=== PATIENT | female | born 1975 | race Caucasian/White ===

== ENCOUNTER → 2020-06-21 16:23 | Outpatient (CLI) | payer OTHER, SELFPAY ==
--- NOTE | 2020-06-21 16:38 | DI.MG.S_ITS ---
Patient Name: MARY KAY SALGADO date: 1975 Sex: F Attending Physician: Brady Indications: Date: 06/21/2020 16:31 At the request of: MAGI DE LA CRUZ Procedure: MM screening mammo implant BI BILATERAL DIGITAL SCREENING MAMMOGRAM 3D/2D WITH CAD WITH AUGMENTATION: 06/21/2020 CLINICAL: Routine screening. Family history of breast cancer. Comparison is made to exams dated: 02/19/2018 mammogram, 11/29/2016 mammogram - [facility], and 08/23/2014 mammogram - [facility]. There are scattered fibroglandular elements in both breasts. Current study was also evaluated with a Computer Aided Detection (CAD) system. There is an oval low density asymmetry with an indistinct and circumscribed margin in the right breast middle depth lateral region seen on the craniocaudal view only. No other significant masses, calcifications, or other findings are seen in either breast. IMPRESSION: INCOMPLETE: NEEDS ADDITIONAL IMAGING EVALUATION The oval low density asymmetry in the right breast is indeterminate. Mediolateral and spot compression views as well as additional views with possible ultrasound are recommended. This exam was interpreted at Station ID: [id number]. NOTE: For mammograms, a report in lay terms will be sent to the patient. Approximately 15% of breast malignancies will not be visualized mammographically. In the management of a palpable breast mass, a negative mammogram must not discourage biopsy of a clinically suspicious lesion. Electronically Signed By: Nicko doe/cortez:06/21/2020 16:54:42 Continued Report - Page 2 of 2 Patient Name: MARY KAY SALGADO date: 1975 Sex: F Attending Physician: Brady Indications: Date: 06/21/2020 16:31 At the request of: MAGI DE LA CRUZ Procedure: MM screening mammo implant BI letter sent: Additional Imaging Needed ACR BI-RADS Category 0: Incomplete [id number]
== END ==
PROVIDERS: PCP Family Medicine; Referring Provider Family Medicine; Visit Provider Family Medicine
DX: Z12.31 Encounter for screening mammogram for malignant neoplasm of breast (principal); Z80.3 Family history of malignant neoplasm of breast
CPT/HCPCS: 77063; 77067

== ENCOUNTER → 2020-07-19 16:44 | Outpatient (CLI) | payer OTHER, SELFPAY ==
[2020-07-19 17:52] LABS: Add Manual Diff / Slide Review NO; Basophils Absolute Auto 100 /uL (0-100); Basophils Percent Auto 0.7 % (0-2); Eosinophils Absolute Auto 200 /uL (0-450); Hematocrit 39.6 % (36-46); Hemoglobin 13.4 g/dL (12.0-16.0); Lymphocytes Absolute Auto 1600 /uL (1100-4500); Lymphocytes Percent Auto 23.4 % (25-40); Mean Corpuscular HGB Conc 33.8 % (30-36); Mean Corpuscular Hemoglobin 32.7 PG (26-34); Monocytes Absolute Auto 300 /uL (0-900); Monocytes Percent Auto 4.8 % (3-14); Neutrophils Absolute Auto 4800 /uL (1500-7000); Neutrophils Percent Auto 68.1 % (50-75); Platelet Count 280 X10^3/uL (150-400); Red Blood Cell Count 4.08 X10^6/uL (4.0-5.2); Red Cell Distribution Width 13.1 % (11.6-14.8)
[2020-07-19 17:59] LABS: Hemoglobin A1C% w Est Avg Glu 5.5 % (4.0-6.0)
[2020-07-19 18:21] LABS: Alanine Aminotransferase 13 IU/L (<35); Albumin 3.9 g/dL (3.5-5.0); Albumin Globulin Ratio 1.3 (1.0-2.8); Alkaline Phosphatase 89 U/L (38-126); Aspartate Aminotransferase 21 IU/L (14-36); BUN Creatinine Ratio 12.9 (6-22); Bilirubin Total 0.3 mg/dL (0.2-1.3); Blood Urea Nitrogen 8 mg/dL (7-17); Calcium 9.3 mg/dL (8.4-10.2); Carbon Dioxide 32 mmol/L (22-32); Chloride 103 mmol/L (98-107); Cholesterol 207 mg/dL (140-199); Estimated Glomerular Filt Rate > 60.0 mL/min (>60); Globulin 3.1 g/dL (1.7-4.1); Glucose 91 mg/dL (70-100); HDL Cholesterol 65 mg/dL (40-60); HEMOLYSIS < 15 (0-50); LDL Cholesterol Calculated 123 mg/dL (<100); Potassium 4.6 mmol/L (3.4-5.1); Sodium 139 mmol/L (137-145); Triglycerides 95 mg/dL (35-150)
[2020-07-19 18:24] LABS: Creatinine Urine Random 81.3 mg/dL
[2020-07-19 18:36] LABS: Vitamin D 25 Hydroxy (D3) 24.4 ng/mL (30.0-100.0)
[2020-07-19 18:39] LABS: Microalbumin Urine Random < 0.6 mg/dL (0-1.6)
[2020-07-19 18:50] LABS: TSH w/ Reflex to FT4 1.43 uIU/mL (0.47-4.68)
[2020-07-19 18:51] LABS: Estradiol, Total 46.8 pg/mL
[2020-07-19 19:09] LABS: Vitamin B12 324 pg/mL (239-931)
[2020-07-20 16:48] LABS: HIV 1 & 2 Ab/Ag 4th Gen Combo NEGATIVE (NEGATIVE); Hep C Virus Ab w/Reflex Quant NEGATIVE s/c (NEGATIVE)
[2020-07-21 05:19] LABS: RPR Screen Non Reactive (Non Reactive)
[2020-07-23 19:36] LABS: Testosterone Free 0.62 ng/dL (0.10-0.85); Testosterone Total 32.8 ng/dL (.)
== END ==
PROVIDERS: PCP Family Medicine; Referring Provider Family Medicine; Visit Provider Family Medicine
DX: Z13.0 Encounter for screening for diseases of the blood and blood-forming organs and certain disorders involving the immune mechanism (principal); Z13.1 Encounter for screening for diabetes mellitus; Z13.21 Encounter for screening for nutritional disorder; Z13.220 Encounter for screening for lipoid disorders
CPT/HCPCS: 36415; 80053; 80061; 82043; 82306; 82570; 82607; 82670; 83036; 84402; 84403; 84443; 85025; 86592; 86803; 87389

== ENCOUNTER → 2021-11-30 13:04 | Outpatient (CLI) | payer OTHER, SELFPAY ==
[2021-11-30 13:40] LABS: Add Manual Diff / Slide Review NO; Basophils Absolute Auto 0 /uL (0-100); Basophils Percent Auto 0.6 % (0-2); Eosinophils Absolute Auto 100 /uL (0-450); Eosinophils Percent Auto 2.2 % (2-4); Hemoglobin 13.5 g/dL (12.0-16.0); Lymphocytes Absolute Auto 1600 /uL (1100-4500); Lymphocytes Percent Auto 32.5 % (25-40); Mean Corpuscular HGB Conc 33.7 % (30-36); Mean Corpuscular Hemoglobin 31.7 PG (26-34); Mean Corpuscular Volume 94.2 fL (80-100); Monocytes Absolute Auto 200 /uL (0-900); Monocytes Percent Auto 4.4 % (3-14); Neutrophils Absolute Auto 3000 /uL (1500-7000); Neutrophils Percent Auto 60.3 % (50-75); Platelet Count 266 X10^3/uL (150-400); Red Blood Cell Count 4.25 X10^6/uL (4.0-5.2); Red Cell Distribution Width 13.3 % (11.6-14.8)
[2021-11-30 14:55] LABS: Alanine Aminotransferase 15 IU/L (<35); Albumin 4.4 g/dL (3.5-5.0); Albumin Globulin Ratio 1.4 (1.0-2.8); Alkaline Phosphatase 73 U/L (38-126); Aspartate Aminotransferase 21 IU/L (14-36); BUN Creatinine Ratio 14.5 (6-22); Bilirubin Total 0.4 mg/dL (0.2-1.3); Blood Urea Nitrogen 9 mg/dL (7-17); Calcium 9.8 mg/dL (8.4-10.2); Carbon Dioxide 32 mmol/L (22-32); Chloride 104 mmol/L (98-107); Cholesterol 230 mg/dL (140-199); Estimated Glomerular Filt Rate > 60.0 mL/min (>60); Globulin 3.2 g/dL (1.7-4.1); Glucose 108 mg/dL (70-100); HDL Cholesterol 68 mg/dL (40-60); HEMOLYSIS < 15 (0-50); LDL Cholesterol Calculated 142 mg/dL (<100); Potassium 4.5 mmol/L (3.4-5.1); Sodium 141 mmol/L (137-145); Total Protein 7.6 g/dL (6.3-8.2); Triglycerides 101 mg/dL (35-150)
[2021-11-30 15:00] LABS: TSH w/ Reflex to FT4 1.93 uIU/mL (0.47-4.68)
[2021-11-30 15:08] LABS: Hepatitis B Surface Antigen NEGATIVE s/c (NEGATIVE)
[2021-11-30 15:20] LABS: Urine N gonorrhoeae NOT DETECTED
[2021-11-30 15:21] LABS: Urine Chlamydia NOT DETECTED
[2021-11-30 15:24] LABS: Vitamin D 25 Hydroxy (D3) 32.4 ng/mL (30.0-100.0)
[2021-11-30 15:27] LABS: Hep C Virus Ab w/Reflex Quant NEGATIVE s/c (NEGATIVE)
[2021-11-30 15:28] LABS: HIV 1 & 2 Ab/Ag 4th Gen Combo NEGATIVE (NEGATIVE)
[2021-11-30 16:28] LABS: Estradiol, Total 16.9 pg/mL
[2021-12-06 06:12] LABS: Percent Free Testosterone 1.25 % (0.50-2.80); Testosterone Free 0.31 ng/dL (0.10-0.85)
== END ==
PROVIDERS: PCP Family Medicine; Referring Provider Family Medicine; Visit Provider Family Medicine
DX: I10 Essential (primary) hypertension (principal); N95.1 Menopausal and female climacteric states; Z11.3 Encounter for screening for infections with a predominantly sexual mode of transmission; Z11.8 Encounter for screening for other infectious and parasitic diseases; E78.5 Hyperlipidemia, unspecified; E55.9 Vitamin D deficiency, unspecified
CPT/HCPCS: 36415; 80053; 80061; 82306; 82670; 84402; 84403; 84443; 85025; 86803; 87340; 87389; 87491; 87591

== ENCOUNTER → 2022-01-24 11:10 | Outpatient (CLI) | payer OTHER, SELFPAY | PROVIDERS: PCP Family Medicine; Referring Provider Family Medicine; Visit Provider Family Medicine | DX: R29.890 Loss of height (principal); Z90.711 Acquired absence of uterus with remaining cervical stump | CPT/HCPCS: 77080 ==

== ENCOUNTER → 2023-02-11 07:55 | Outpatient (CLI) | payer OTHER, SELFPAY ==
[2023-02-11 10:04] LABS: Add Manual Diff / Slide Review NO; Basophils Absolute Auto 0 /uL (0-100); Basophils Percent Auto 0.9 % (0-2); Eosinophils Absolute Auto 200 /uL (0-450); Eosinophils Percent Auto 3.7 % (2-4); Hemoglobin 12.4 g/dL (12.0-16.0); Lymphocytes Absolute Auto 1600 /uL (1100-4500); Lymphocytes Percent Auto 30.2 % (25-40); Mean Corpuscular HGB Conc 33.5 % (30-36); Mean Corpuscular Hemoglobin 32.1 PG (26-34); Mean Corpuscular Volume 95.9 fL (80-100); Monocytes Absolute Auto 500 /uL (0-900); Monocytes Percent Auto 8.4 % (3-14); Neutrophils Absolute Auto 3100 /uL (1500-7000); Neutrophils Percent Auto 56.8 % (50-75); Platelet Count 283 X10^3/uL (150-400); Red Blood Cell Count 3.86 X10^6/uL (4.0-5.2); Red Cell Distribution Width 12.9 % (11.6-14.8); White Blood Cell Count 5.4 X10^3/uL (4.5-11.0)
[2023-02-11 10:35] LABS: Alanine Aminotransferase 19 IU/L (<35); Albumin 4.2 g/dL (3.5-5.0); Albumin Globulin Ratio 1.3 (1.0-2.8); Alkaline Phosphatase 90 U/L (38-126); Aspartate Aminotransferase 21 IU/L (14-36); BUN Creatinine Ratio 20.8 (6-22); Bilirubin Total 0.3 mg/dL (0.2-1.3); Blood Urea Nitrogen 20 mg/dL (7-17); Carbon Dioxide 32 mmol/L (22-32); Chloride 96 mmol/L (98-107); Cholesterol 228 mg/dL (140-199); Estimated Glomerular Filt Rate > 60 mL/min (>60); Globulin 3.3 g/dL (1.7-4.1); Glucose 96 mg/dL (70-100); HDL Cholesterol 73 mg/dL (40-60); HEMOLYSIS < 15 (0-50); LDL Cholesterol Calculated 135 mg/dL (<100); Potassium 4.6 mmol/L (3.4-5.1); Sodium 136 mmol/L (137-145); Total Protein 7.5 g/dL (6.3-8.2); Triglycerides 100 mg/dL (35-150)
--- NOTE | 2023-02-12 12:49 | DI.NM.S_ITS ---
DATE OF SERVICE: PROCEDURE: Exercise stress test. INDICATIONS: Chest pain with underlying hypertension. CARDIAC STRESS: The patient underwent exercise stress test under the supervision of an attending staff. The patient walked on [place] protocol for 9 minutes and achieved 10.1 METS of workload, 89% of target heart rate, SHARI -12%. Resting blood pressure 122/82 mmHg. Peak blood pressure 170/102 mmHg. Maximum heart rate achieved of 153 beats per minute. Baseline rhythm was sinus. During stress, no convincing ischemic changes seen. No significant arrhythmias seen. No ischemic symptoms. The patient felt fatigue and mild shortness of breath during exercise. CONCLUSION: Exercise stress test is negative for inducible ischemia. Fair exercise tolerance. Functional aerobic impairment -12%. Resting blood pressure 122/82 mmHg and peak blood pressure 170/102 mmHg. No significant arrhythmias. No anginal symptoms. Overall, low-risk exercise stress test. Felicitas Camejo - KAILYN/nino/titi doc#: [id number]/job#: [id number] dd: 02/11/2023 16:36:00 dt: 02/12/2023 01:11:00 DICTATING /COPIES TO: Jostin Enriquez MD COPIES MNE: DELMER;
== END ==
PROVIDERS: PCP Family Medicine; Referring Provider Family Medicine; Visit Provider Family Medicine
DX: R07.9 Chest pain, unspecified (principal); I10 Essential (primary) hypertension
CPT/HCPCS: 36415; 80053; 80061; 85025; 93017

== ENCOUNTER → 2023-06-03 14:32 | Outpatient (CLI) | payer OTHER, SELFPAY ==
[2023-06-03 16:02] LABS: BUN Creatinine Ratio 27.8 (6-22); Blood Urea Nitrogen 22 mg/dL (7-17); Carbon Dioxide 27 mmol/L (22-32); Chloride 104 mmol/L (98-107); Estimated Glomerular Filt Rate > 60 mL/min (>60); Glucose 93 mg/dL (70-100); HEMOLYSIS < 15 (0-50); Potassium 4.1 mmol/L (3.4-5.1); Sodium 137 mmol/L (137-145)
== END ==
PROVIDERS: PCP Family Medicine; Referring Provider Physician Assistant; Visit Provider Physician Assistant
DX: I10 Essential (primary) hypertension (principal)
CPT/HCPCS: 36415; 80048

== ENCOUNTER → 2023-11-26 16:03 | Outpatient (CLI) | payer OTHER, SELFPAY ==
[2023-11-26 17:50] LABS: Add Manual Diff / Slide Review NO; Basophils Absolute Auto 0 /uL (0-100); Basophils Percent Auto 0.5 % (0-2); Eosinophils Absolute Auto 100 /uL (0-450); Eosinophils Percent Auto 1.5 % (2-4); Hematocrit 37.9 % (36-46); Hemoglobin 12.7 g/dL (12.0-16.0); Lymphocytes Absolute Auto 2300 /uL (1100-4500); Lymphocytes Percent Auto 25.4 % (25-40); Mean Corpuscular HGB Conc 33.5 % (30-36); Mean Corpuscular Hemoglobin 31.6 PG (26-34); Mean Corpuscular Volume 94.4 fL (80-100); Monocytes Absolute Auto 700 /uL (0-900); Monocytes Percent Auto 7.4 % (3-14); Neutrophils Absolute Auto 5900 /uL (1500-7000); Neutrophils Percent Auto 65.2 % (50-75); Platelet Count 268 X10^3/uL (150-400); Red Blood Cell Count 4.01 X10^6/uL (4.0-5.2); Red Cell Distribution Width 13.1 % (11.6-14.8)
[2023-11-26 18:07] LABS: Hemoglobin A1C% w Est Avg Glu 5.4 % (4.0-6.0)
[2023-11-26 18:31] LABS: Alanine Aminotransferase 14 IU/L (<35); Albumin 4.4 g/dL (3.5-5.0); Albumin Globulin Ratio 1.2 (1.0-2.8); Alkaline Phosphatase 79 U/L (38-126); Aspartate Aminotransferase 26 IU/L (14-36); BUN Creatinine Ratio 17.3 (6-22); Bilirubin Total 0.4 mg/dL (0.2-1.3); Blood Urea Nitrogen 17 mg/dL (7-17); Calcium 9.4 mg/dL (8.4-10.2); Carbon Dioxide 28 mmol/L (22-32); Chloride 100 mmol/L (98-107); Estimated Glomerular Filt Rate > 60 mL/min (>60); Globulin 3.6 g/dL (1.7-4.1); Glucose 94 mg/dL (70-100); HEMOLYSIS 18 (0-50); Potassium 3.4 mmol/L (3.4-5.1); Sodium 137 mmol/L (137-145)
[2023-11-26 18:51] LABS: TSH w/ Reflex to FT4 2.17 uIU/mL (0.47-4.68)
== END ==
PROVIDERS: PCP Student in an Organized Health Care Education/Training Program; Referring Provider Student in an Organized Health Care Education/Training Program; Visit Provider Student in an Organized Health Care Education/Training Program
DX: Z13.1 Encounter for screening for diabetes mellitus (principal); Z13.29 Encounter for screening for other suspected endocrine disorder; R53.83 Other fatigue; Z80.3 Family history of malignant neoplasm of breast
CPT/HCPCS: 36415; 80053; 83036; 84443; 85025

== ENCOUNTER → 2025-09-12 16:23 | Outpatient (CLI) | payer OTHER, SELFPAY ==
[2025-09-12 18:31] LABS: Follicle Stimulating Hormone 86.5 mIU/mL
[2025-09-12 18:37] LABS: Urine N gonorrhoeae NOT DETECTED
[2025-09-12 18:44] LABS: Urine Chlamydia NOT DETECTED
[2025-09-13 15:27] LABS: Hepatitis B Surface Antigen NEGATIVE s/c (NEGATIVE)
[2025-09-13 15:44] LABS: HIV 1 & 2 Ab/Ag 4th Gen Combo NEGATIVE (NEGATIVE); Hep C Virus Ab w/Reflex Quant NEGATIVE s/c (NEGATIVE)
[2025-09-14 00:36] LABS: HSV 1 IGG Reactive (Non Reactive); HSV 2 IGG Reactive (Non Reactive)
== END ==
PROVIDERS: PCP Student in an Organized Health Care Education/Training Program; Referring Provider Student in an Organized Health Care Education/Training Program; Visit Provider Student in an Organized Health Care Education/Training Program
DX: R79.89 Other specified abnormal findings of blood chemistry (principal); Z11.3 Encounter for screening for infections with a predominantly sexual mode of transmission; N95.1 Menopausal and female climacteric states
CPT/HCPCS: 36415; 82672; 83001; 84403; 86592; 86695; 86696; 86803; 87340; 87389; 87491; 87591